=== PATIENT | male | born 1975 ===

== ENCOUNTER 2018-09-18 07:38 | Emergency (ER) | payer BC, OTHER ==
[2018-09-18 07:46] VITALS: RESP 18; TEMP 97.8
[2018-09-18] MEDS ORDERED: Sodium Chloride 0.9% 1,000 ML IV ONE (07:54)
[2018-09-18] MEDS ORDERED: Sodium Chloride 0.9% 0 ML IV ONE (08:00)
[2018-09-18] MEDS ORDERED: Sodium Chloride 0.9% 1,000 ML ONE (08:01)
[2018-09-18 08:27] LABS: BASO # 0.1 K/uL (0.0-0.2); BASO % 0.4 % (0.0-2.0); EOS # 0.1 K/uL (0.0-0.7); EOS % 0.6 % (0.0-4.0); HEMOGLOBIN 14.2 g/dL (12.0-18.0); LYMPH # 1.6 K/uL (1.0-4.3); LYMPH % 11.3 % (20.0-40.0); MEAN CELL VOLUME 86.4 fL (80.0-94.0); MEAN CORPUSCULAR HEMOGLOBIN 29.3 pg (27.0-31.0); MEAN CORPUSCULAR HGB CONC 33.9 g/dL (33.0-37.0); MEAN PLATELET VOLUME 8.2 fL (7.2-11.7); MONO # 0.5 K/uL (0.0-0.8); MONO % 3.7 % (0.0-10.0); NEUT # 11.9 K/uL (1.8-7.0); NRBC % 0.1 % (0.0-2.0); RBC 4.86 Mil/uL (4.40-5.90); RED CELL DISTRIBUTION WIDTH 12.9 % (11.5-14.5); WHITE BLOOD COUNT 14.2 K/uL (4.8-10.8)
[2018-09-18 08:30] LABS: URINE BACTERIA RARE (<OCC); URINE BILIRUBIN NEGATIVE (NEGATIVE); URINE BLOOD 2+ (NEGATIVE); URINE COLOR Yellow (YELLOW); URINE GLUCOSE (UA) NORMAL (Normal); URINE LEUKOCYTE ESTERASE 1+ Leu/uL (Negative); URINE PROTEIN 1+ mg/dL (NEGATIVE); URINE UROBILINOGEN NORMAL mg/dL (0.2-1.0)
[2018-09-18 08:31] LABS: URINE CLARITY SLHAZY (Clear)
[2018-09-18 08:44] LABS: ALB/GLOB RATIO 1.3 (1.0-2.1); ALBUMIN 4.6 g/dL (3.5-5.0); ALT/SGPT 43 U/L (21-72); AST/SGOT 33 U/L (17-59); BLOOD UREA NITROGEN 12 mg/dL (9-20); CALCIUM 9.8 mg/dl (8.6-10.4); GFR NON-AFRICAN AMERICAN > 60; LIPASE 85 U/L (23-300)
--- NOTE | 2018-09-18 09:56 | CT ---
Date of service: 09/18/2018 PROCEDURE: CT Abdomen and Pelvis without intravenous contrast HISTORY: right flank pain COMPARISON: None. TECHNIQUE: Multiple contiguous axial images were performed through the abdomen and pelvis without the use of intravenous contrast. Subsequently, sagittal coronal reformatted images were obtained. Radiation dose: Total exam DLP = 662.51 mGy-cm. This CT exam was performed using one or more of the following dose reduction techniques: Automated exposure control, adjustment of the mA and/or kV according to patient size, and/or use of iterative reconstruction technique. FINDINGS: LOWER THORAX: Atelectasis at the lung bases. 5 millimeter nodule/calcified granuloma at the posterior aspect of the right lower lobe. Lingular atelectasis. LIVER: Mild fatty infiltration the liver. GALLBLADDER AND BILE DUCTS: Unremarkable. PANCREAS: Unremarkable. No gross lesion or ductal dilatation. SPLEEN: Unremarkable. ADRENALS: Unremarkable. No mass. KIDNEYS AND URETERS: Right kidney: Large 1.6 centimeter calculus in the right renal pelvis at the level of the midpole with associated fullness and or mild hydronephrosis of the right renal collecting system. Mild ureteral fat stranding at the level of the proximal and mid right ureter. Left Kidney: No calculi or hydronephrosis. VASCULATURE: Unremarkable. No aortic aneurysm. No aortic atherosclerotic calcification or mural plaque present. BOWEL: Unremarkable. No obstruction. No gross mural thickening. Diverticulosis. Under distended colon. APPENDIX: Unremarkable. Normal appendix. PERITONEUM: Unremarkable. No free fluid. No free air. LYMPH NODES: Unremarkable. No enlarged lymph nodes. BLADDER: Unremarkable. REPRODUCTIVE: Unremarkable. BONES: Degenerative changes in the spine. OTHER FINDINGS: Small fat containing inguinal hernias. IMPRESSION: Large 1.6 centimeter calculus in the right renal pelvis at the level of the midpole with associated mild fullness and or mild hydronephrosis of the right renal collecting system. Mild ureteral fat stranding at the level of the proximal and mid right ureter. Clinical correlation. Additional findings as above.
--- NOTE | 2018-09-18 10:13 | C.PDOC ---
History Of Present Illness 43-year-old male, presents to the emergency department with complaints of right sided back pain that started two hours ago, associated with nausea and non-bloody/non-bilious vomiting. Notes the symptoms have improved since the episode two hours ago. Patient denies any dysuria, hematuria, fever, abdominal pain, or any other associated symptoms. No h/o similar symptoms. Time Seen by Provider: 09/18/18 07:49 Chief Complaint (Nursing): Male Genitourinary History Per: Patient History/Exam Limitations: no limitations Current Symptoms Are (Timing): Still Present Past Medical History Reviewed: Historical Data, Nursing Documentation, Vital Signs Vital Signs: Last Vital Signs Temp 97.8 F 09/18/18 07:44 Pulse 63 09/18/18 07:44 Resp 18 09/18/18 07:44 BP 122/83 09/18/18 07:44 Pulse Ox 98 09/18/18 07:44 Family History: States: No Known Family Hx - Social History Hx Alcohol Use: No Hx Substance Use: No Review Of Systems Constitutional: Negative for: Fever Cardiovascular: Negative for: Chest Pain Respiratory: Negative for: Shortness of Breath Gastrointestinal: Negative for: Nausea, Vomiting, Abdominal Pain Genitourinary: Negative for: Dysuria, Hematuria Musculoskeletal: Positive for: Back Pain Physical Exam - Physical Exam Appears: Non-toxic, No Acute Distress Skin: Warm, Dry, No Rash Head: Atraumatic Eye(s): bilateral: Normal Inspection, EOMI Nose: Normal Oral Mucosa: Moist Lips: Normal Appearing Neck: Normal ROM, Supple Chest: Symmetrical Cardiovascular: Rhythm Regular Respiratory: Normal Breath Sounds, No Accessory Muscle Use Gastrointestinal/Abdominal: Normal Exam, Soft, No Tenderness Back: CVA Tenderness (right), No Vertebral Tenderness Extremity: Normal ROM, No Deformity Neurological/Psych: Oriented x3, Normal Speech ED Course And Treatment - Laboratory Results Result Diagrams: 09/18/18 08:09 09/18/18 08:09 O2 Sat by Pulse Oximetry: 98 Pulse Ox Interpretation: Normal (RA) Progress Note: CT Abd/Pel, Bloodwork and UA ordered and reviewed. Patient tr eated with IVFs. Pt declined pain medication. Case disussed with Dr Dimas Victor, advises to discharge pt and send to his office for outpatient f/u. Patient verbalizes agreement, and states he will comply. [employer] services assistant to ensure understanding. Disposition - Disposition Referrals: Reji Victor MD [Staff Provider] - Disposition: HOME/ ROUTINE Disposition Time: 12:00 Condition: STABLE Additional Instructions: Go to Dr Victor's office directly after discharge. Return to ER if symptoms persist or worsen. Call Dr Victor at [phone] . Ir a la oficina del Dr. Victor directamente despus del jenny. Regrese a la ernie de emergencias si los sntomas persisten o empeoran. Instructions: Renal Colic (DC) Forms: [employer] (Polish) Print Language: FAROESE - Clinical Impression Clinical Impression: Renal colic - Scribe Statement The provider has reviewed the documentation as recorded by the Scribe (Lincoln Julian) All medical record entries made by the Scribe were at my direction and personally dictated by me. I have reviewed the chart and agree that the record accurately reflects my personal performance of the history, physical exam, medical decision making, and the department course for this patient. I have also personally directed, reviewed, and agree with the discharge instructions and disposition.
[2018-09-18 10:25] VITALS: BP 112/71; PULSE 95
[2018-09-26 03:53] VITALS: O2SAT 98
== END 2018-09-18 10:28 | disposition home or self-care (01) ==
LOC: C.ER 07:38
DX: N23 Unspecified renal colic (principal)